=== PATIENT | male | born 1960 | race African-American/Black ===

== ENCOUNTER 2017-11-16 09:45 | Emergency (ER) | payer MEDICAID ==
[~2017-11-16] VITALS: Ht 180.3 cm; Wt 84.0 kg
[2017-11-16 18:11] VITALS: BP 136/80
[2017-11-16] MEDS ORDERED: HYDROCODONE/APAP 7.5/325MG 1 TAB TABLET PO ONE (20:45)
== END 2017-11-16 22:00 | disposition home or self-care (01) ==
LOC: ER 09:45
DX: G89.29 Other chronic pain (principal); J44.9 Chronic obstructive pulmonary disease, unspecified; Z88.0 Allergy status to penicillin
CPT/HCPCS: 99283; Z7610